=== PATIENT | female | born 1945 | race Asian ===

== ENCOUNTER 2017-09-09 09:13 | Day surgery (SDC) | payer MEDICARE, OTHER ==
[2017-09-09] MEDS ORDERED: PROPOFOL 40 ML (10:21)
== END 2017-09-09 16:51 | disposition home or self-care (01) ==
LOC: GIL 09:13
DX: D12.6 Benign neoplasm of colon, unspecified (principal); K57.90 Diverticulosis of intestine, part unspecified, without perforation or abscess without bleeding; K64.8 Other hemorrhoids; E78.5 Hyperlipidemia, unspecified; E11.9 Type 2 diabetes mellitus without complications; E03.9 Hypothyroidism, unspecified
CPT/HCPCS: 45380; 82962; 88305